=== PATIENT | female | born 1975 | race Hispanic/Latino ===

== ENCOUNTER 2017-09-19 20:57 | Emergency (ER) | payer BC, OTHER ==
[2017-09-19] MEDS ORDERED: Penicillin V Potassium 250 MG TAB ONE (21:15)
[2017-09-19] MEDS ORDERED: Acetaminophen/Codeine 30-300mg Tablet ONE (21:23)
== END 2017-09-19 21:36 | disposition home or self-care (01) ==
LOC: NAV ERS 20:57
DX: K02.9 Dental caries, unspecified (principal); E11.9 Type 2 diabetes mellitus without complications; I10 Essential (primary) hypertension; Z79.84 Long term (current) use of oral hypoglycemic drugs; Z79.899 Other long term (current) drug therapy
CPT/HCPCS: 99282

== ENCOUNTER 2018-04-19 13:04 | Emergency (ER) | payer OTHER, SELFPAY ==
[2018-04-19] MEDS ORDERED: Sodium Chloride 0.9% 1,000 ML ONE (13:34)
[2018-04-19] MEDS ORDERED: Ketorolac Tromethamine 30 MG/ML VIAL ONE (13:34)
[2018-04-19 13:56] LABS: Bilirubin Negative (Negative); Blood, Urine Negative (Negative); Clarity Clear (Clear); Glucose, Urine (Dipstick) Negative (Negative); Leukocyte Trace (Negative); Nitrite Positive (Negative); Protein, Urine (Dipstick) Negative (Neg-Trace); Urobilinogen 0.2 mg/dL (0.2-1.0)
[2018-04-19 13:57] LABS: #Basophils 0.1 thou/uL (0.0-0.2); #Eosinphils 0.3 thou/uL (0.0-0.7); #Lymphocytes 3.5 thou/uL (1.20-3.40); #Monocytes 0.4 thou/uL (0.11-0.59); #Neutrophils 2.9 thou/uL (1.40-6.50); %Lymphocytes 49.2 % (21.0-51.0); %Monocytes 5.2 % (0.0-10.0); %Neutrophils 40.7 % (42.0-75.0); Hemoglobin 14.3 g/dL (12.0-16.0); Mean Corpuscular HGB CONC 33.2 g/dL (32.0-36.0); Mean Corpuscular Volume 84.5 fL (78.0-98.0); Mean Platelet Volume 8.4 fL (7.4-10.4); Platelet Count 294 thou/uL (130-400); RBC Distribution Width 11.5 % (11.5-14.5); Red Blood Cell (RBC) Count 5.09 mill/uL (4.20-5.40)
[2018-04-19 14:02] LABS: Specific Gravity, Urine 1.025 (1.002-1.036)
[2018-04-19 14:03] LABS: Pregnancy Test - Urine (BHCG) Negative (Negative); Pregu Control Background? CLEAR/WHITE (CLR/WHITE); Pregu Control Bar Appear? YES (CONTROL BAR); Specific Gravity 1.025 (1.002-1.036)
[2018-04-19 14:11] LABS: ALT (SGPT) 29 U/L (8-55); AST (SGOT) 18 U/L (5-34); Albumin 4.3 g/dL (3.5-5.0); Alkaline Phosphatase 51 U/L (40-150); Anion Gap 12 mmol/L (10-20); BUN (Urea Nitrogen) 11 mg/dL (7.0-18.7); Bilirubin, Total 0.6 mg/dL (0.2-1.2); Calc. Creatinine Clearance 0 mL/min (70-130); Calcium 9.5 mg/dL (7.8-10.44); Carbon Dioxide 23 mmol/L (22-29); Chloride 106 mmol/L (98-107); Estimated GFR-MDRD Greater than 90; Globulin 3.4 g/dL (2.4-3.5); Glucose 150 mg/dL (70-105); Lipase 21 U/L (8-78); Potassium 3.8 mmol/L (3.5-5.1); Protein, Total 7.7 g/dL (6.0-8.3); Sodium 137 mmol/L (136-145)
[2018-04-19 14:23] LABS: Bacteria/HPF Rare-Few HPF (None Seen); Other Microscopic Description NO; RBC/HPF None Seen HPF (0-3); WBC/HPF 0-3 HPF (0-3)
[2018-04-19] MEDS ORDERED: Ondansetron HCl/PF 4 MG/2 ML Vial ONE (14:36)
--- NOTE | 2018-04-19 14:40 | CT ---
CT ABDOMEN AND PELVIS NONCONTRAST: History: Left flank pain. FINDINGS: Each renal collecting system, ureter and urinary bladder are decompressed without stone apparent. Lack of contrast limits evaluation for other abnormalities. Liver is diffusely hypodense. Calcified g ranulomata are consistent with healed granulomatous disease. No evidence of bowel obstruction or infl ammation. IMPRESSION: 1. No CT evidence of an urinary tract obstruction or calcification. 2. Hepatosteatosis. POS: [facility]
== END 2018-04-19 15:10 | disposition home or self-care (01) ==
LOC: NAV ERS 13:04
DX: S39.012A Strain of muscle, fascia and tendon of lower back, initial encounter (principal); N30.00 Acute cystitis without hematuria; E78.5 Hyperlipidemia, unspecified; I10 Essential (primary) hypertension; E11.9 Type 2 diabetes mellitus without complications; F41.9 Anxiety disorder, unspecified; Z79.84 Long term (current) use of oral hypoglycemic drugs; Z79.899 Other long term (current) drug therapy; X58.XXXA Exposure to other specified factors, initial encounter
CPT/HCPCS: 74176; 80053; 81003; 81015; 81025; 83690; 85025; 96374; 96375; J1885; J2270; J2405; J7050

== ENCOUNTER 2021-11-22 13:00 | Emergency (ER) | payer BC ==
[2021-11-22] MEDS ORDERED: Ondansetron ODT 4 MG TAB ONE (13:41)
[2021-11-23 08:13] LABS: SARS-CoV-2 PCR by NAA DETECTED (NotDetected)
== END 2021-11-22 14:00 | disposition home or self-care (01) ==
LOC: NAV ERS 13:00
DX: U07.1 COVID-19 (principal); I10 Essential (primary) hypertension; E11.9 Type 2 diabetes mellitus without complications; E78.5 Hyperlipidemia, unspecified; E78.00 Pure hypercholesterolemia, unspecified; Z79.84 Long term (current) use of oral hypoglycemic drugs
CPT/HCPCS: 99284; Q0162; U0003; U0005

== ENCOUNTER 2022-08-22 22:40 | Emergency (ER) | payer BC ==
[2022-08-22] MEDS ORDERED: diphenhydrAMINE 25 MG CAP ONE (23:21)
== END 2022-08-22 23:31 | disposition home or self-care (01) ==
LOC: NAV ERS 22:40
DX: T63.481A Toxic effect of venom of other arthropod, accidental (unintentional), initial encounter (principal); E78.5 Hyperlipidemia, unspecified; E78.00 Pure hypercholesterolemia, unspecified; I10 Essential (primary) hypertension; E11.9 Type 2 diabetes mellitus without complications
CPT/HCPCS: 99282

== ENCOUNTER 2025-04-04 07:43 | Emergency (ER) | payer BC ==
[2025-04-04] MEDS ORDERED: Acetaminophen 500 MG TAB ONE (08:09)
[2025-04-04] MEDS ORDERED: Naproxen 500 MG TAB ONE (08:09)
== END 2025-04-04 08:58 | disposition home or self-care (01) ==
LOC: NAV ERS 07:43
DX: S82.61XA Displaced fracture of lateral malleolus of right fibula, initial encounter for closed fracture (principal); I10 Essential (primary) hypertension; E11.9 Type 2 diabetes mellitus without complications; E78.5 Hyperlipidemia, unspecified; Z79.84 Long term (current) use of oral hypoglycemic drugs; Z79.899 Other long term (current) drug therapy; X50.1XXA Overexertion from prolonged static or awkward postures, initial encounter
CPT/HCPCS: 99283